=== PATIENT | female | born 1990 | race Caucasian/White ===

== ENCOUNTER 2017-02-10 13:08 | Emergency (ER) | payer MEDICARE, MEDICAID ==
[~2017-02-10] VITALS: Ht 160 cm; Wt 56.9 kg
[~2017-02-10 13:08] MED LIST: ACHD5005 PO; ACHYD1T PO; ALPR0.5T PO; AMOX500C2 PO; BCP; BUTA1TAB55 PO; CYCL10TA9 PO; DOCU100C37 PO; HYDR-1231 PO; HYDR-3730 PO; HYDR-3812 PO; HYDR1TAB PO; IBP800T PO; IBUP-1780 PO; IBUP400T22 PO; NAPR-243 PO; OMEP20TA7 PO; ONDA4TAB8 PO; OXYC-465 PO; PNV1TABL9 PO; PREN1TAB39; RANI150T15 PO; SULF1TAB38 PO; bcp PO
--- NOTE | 2017-02-10 13:54 | ED Upper Extremity ---
General Chief Complaint: Upper Extremity Stated Complaint: RT SHOULDER INJ FALL FROM PORCH Source: patient History of Present Illness Time seen by provider: 13:40 Initial Comments The patient is a 26-year-old white female who reports that just prior to admission she fell off her porch and landed heavily on her left shoulder. When Questioned as to why this happened she reported that she had been lecturing her children on what might happen if they leaned over too far and fell. She apparently demonstrated in a graphic sort of way. She complains of pain at the left clavicle and labrum areas. There is no visible defect. Onset: just prior to arrival Pain/Injury Location: left shoulder Method of Injury: fell Allergies and Home Medications Allergies Coded Allergies: tramadol (Unverified Allergy, Mild, RASH, 07/27/09) Home Medications Hydrocodone/Acetaminophen 1 Each Tablet, 1-2 EACH PO Q4H, #35 Prescribed by: ANIVAL GUDINO on 04/15/16 1002 Omeprazole 20 Mg Tablet.dr, 20 MG PO DAILY, (Reported) Ondansetron 4 Mg Tab.rapdis, 4 MG PO Q4H PRN for NAUSEA, (Reported) Ranitidine HCl 150 Mg Tablet, 150 MG PO DAILY, (Reported) [bcp] , 1 TAB PO DAILY, (Reported) Constitutional: see HPI EENTM: no symptoms reported Respiratory: no symptoms reported Cardiovascular: no symptoms reported Gastrointestinal: no symptoms reported Musculoskeletal: other (left shoulder pain) Past Hzjlggx-Jdaibl-Mghtpm Hx Patient Social History Type Used: Cigarettes Recent Foreign Travel: No Contact w/Someone Who Travel: No Immunizations Up To Date Tetanus Booster (TDap): Less than 5yrs PED Vaccines UTD: Yes Seasonal Allergies Seasonal Allergies: No Surgeries HX Surgeries: No Respiratory Hx Respiratory Disorders: No Cardiovascular Hx Cardiac Disorders: No Neurological Hx Neurological Disorders: Yes Reproductive System Hx Reproductive Disorders: No Sexually Transmitted Disease: No HIV/AIDS: No Female Reproductive Disorders: Denies Genitourinary Hx Genitourinary Disorders: No Gastrointestinal Hx Gastrointestinal Disorders: Yes Gastrointestinal Disorders: Gall Bladder Disease Musculoskeletal Hx Musculoskeletal Disorders: No Musculoskeletal Disorders: Fractures Endocrine Hx Endocrine Disorders: No HEENT HX ENT Disorders: No Loss of Vision: Denies Hearing Impairment: Denies Cancer Hx Cancer: No Psychosocial Hx Psychiatric Problems: Yes Behavioral Health Disorders: Anxiety, Depression Integumentary HX Skin/Integumentary Disorder: No Blood Transfusions Hx Blood Disorders: No Adverse Reaction to a Blood Tr: No Family Medical History Significant Family History: No Pertinent Family Hx Family Medial History: Asthma 19 FATHER, Onset:Childhood Thyroid disease 19 MOTHER, Onset:30's - 40 Physical Exam Vital Signs Vital Sign - Last 12Hours 02/10/17 13:30 Temp 97.3 Pulse 85 Resp 16 B/P (MAP) 118/68 Pulse Ox 97 O2 Delivery Room Air Capillary Refill : General Appearance: moderate distress HEENT: normal ENT inspection Neck: full range of motion Cardiovascular: normal peripheral pulses, regular rate, rhythm, no edema, no gallop, no JVD, no murmur Respiratory: chest non-tender, lungs clear, normal breath sounds, no respiratory distress, no accessory muscle use Comments Tender to palpation along the left clavicle without palpable deformity. Palpable pain at the area of the labrum without step-off Progress/Results/Core Measures Results/Orders My Orders Orders - LUCHO BYRNES MD Shoulder, Left, 3 Views (02/10/17 13:46) Clavicle, Left (02/10/17 13:46) Vital Signs/I&O Vital Sign - Last 12Hours 02/10/17 13:30 Temp 97.3 Pulse 85 Resp 16 B/P (MAP) 118/68 Pulse Ox 97 O2 Delivery Room Air Departure Communication Progress Notes X-rays show no bony abnormalities of the shoulder or clavicle. Impression Impression: Primary Impression: left shoulder contusion Disposition: 01 HOME, SELF-CARE Condition: Stable/Unchanged Departure-Patient Inst. Decision time for Depature: 14:28 Referrals: LUIS SCHWARTZ MD (PCP/Family) Primary Care Physician Patient Instructions: How to Use a Shoulder Sling Add. Discharge Instructions: All discharge instructions reviewed with patient and/or family. Voiced understanding. The patient is informed that there are no bony abnormalities. The possibility of rotator cuff injury remains. Use shoulder sling as demonstrated. Use ice pack for 30 minutes at least 3 times before bedtime. Ibuprofen 600 mg 3 times daily If you are unable to recognize any improvement by one week's time, see your provider for possible referral to orthopedics. LUCHO BYRNES MD Feb 10, 2017 13:54
--- NOTE | 2017-02-10 14:08 | Diagnostic Imaging Report ---
INDICATION: Left shoulder injury 2 views of the left clavicle show no fracture or dislocation. IMPRESSION: Negative left clavicle. Dictated by: Dictated on workstation # [id number]
--- NOTE | 2017-02-10 14:14 | Diagnostic Imaging Report ---
INDICATION: Left shoulder pain after a fall. 3 views of the left shoulder show no fracture, dislocation or other acute abnormalities. IMPRESSION: Negative left shoulder. Dictated by: Dictated on workstation # [id number]
[2017-02-10 14:50] VITALS: BP 118/68
--- OUTSIDE RECORDS SUMMARY | 2017-02-14 07:21 | XMS REPORT ---
Author JUSTYN Agustin Organization [employer] Address Unknown Phone Unavailable Care Team Providers Care Manager Studio Name Role Phone JUSTYN MEJIAS CP Unavailable Allergies No Known Allergies Problems Problem Type Condition Code Onset Dates Condition Status Problem Generalized anxiety disorder F41.1 Active Problem ADHD, predominantly inattentive type F90.0 Active Problem Depressive disorder, not elsewhere classified F32.9 Active Assessment ADHD, predominantly inattentive type F90.0 Active Assessment Depressive disorder, not elsewhere classified F32.9 Active Assessment Generalized anxiety disorder F41.1 Active Medications No Known Medications Procedures Procedure Coding System Code Date Psychotherapy, patient &/family, 45 minutes, established patient CPT-4 72684 May 27, 2016 Results No Known Results Summary Purpose [employer] Submission
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
== END 2017-02-10 14:50 | disposition home or self-care (01) ==
LOC: EDUNIT# 13:08 → ER 13:11
DX: S40.012A Contusion of left shoulder, initial encounter (principal); F41.9 Anxiety disorder, unspecified; F32.9 Major depressive disorder, single episode, unspecified; Z87.39 Personal history of other diseases of the musculoskeletal system and connective tissue; W17.89XA Other fall from one level to another, initial encounter
CPT/HCPCS: 73000; 73030; 99282

== ENCOUNTER → 2017-08-16 | Outpatient (CLI) | payer MEDICARE, MEDICAID ==
[~2017-08-16] MED LIST changes: -HYDR-3812 PO
--- NOTE | 2017-08-16 12:09 | Diagnostic Imaging Report ---
PROCEDURE: US Thyroid. TECHNIQUE: Multiple real-time grayscale images were obtained of the thyroid in various projections. INDICATION: Goiter. FINDINGS: There are no prior studies available for comparison. The thyroid gland is prominent with the right lobe measuring 5.3 x 1.9 x 1.9 cm and the left lobe estimated to be 4.8 x 1.7 x 1.7 cm (normal gland size 4-5 x 2 x 2 cm or less). There is no discrete solid or cystic mass within either lobe, but the thyroid gland itself has somewhat of a coarse echotexture. IMPRESSION: 1. The thyroid gland is at the upper limits of normal in size, but there is no discrete solid or cystic mass identified. 2. If further imaging evaluation of the thyroid gland is desired, then a nuclear medicine thyroid scan with uptake will be recommended. Dictated by: Dictated on workstation # [id number]
== END ==
LOC: RAD 11:16
PROVIDERS: ATTEND Obstetrics & Gynecology
DX: E04.9 Nontoxic goiter, unspecified (principal)
CPT/HCPCS: 76536

== ENCOUNTER 2018-01-21 11:42 | Inpatient (IN) | payer MEDICARE, MEDICAID ==
[~2018-01-21] VITALS: Ht 160 cm; Wt 64.4 kg
[2018-01-21] VITALS (31 sets, daily range): BP systolic 97–137; BP diastolic 55–93
[~2018-01-21 11:42] MED LIST changes: -RANI150T15 PO; +RANI150T46 PO
[2018-01-21] MEDS ORDERED: D5 LR IV SOLUTION 1,000 ML IV ONE (12:11)
[2018-01-21] MEDS ORDERED: D5 LR IV SOLUTION 1,000 ML IV SCH (12:39)
[2018-01-21] MEDS ORDERED: OXYTOCIN/NORMAL SALINE 500 ML IV SCH ×2 (12:39→14:39)
[2018-01-21 12:52] LABS: BASOPHILS % (AUTO) 0 % (0-10); EOSINOPHILS # (AUTO) 0.1 10^3/uL (0.0-0.3); EOSINOPHILS % (AUTO) 1 % (0-10); HEMATOCRIT 38 % (35-52); HEMOGLOBIN 12.7 G/DL (11.5-16.0); LYMPHOCYTES % (AUTO) 27 % (12-44); MEAN CORPUSCULAR HEMOGLOBIN 29 PG (25-34); MEAN CORPUSCULAR HGB CONC 34 G/DL (32-36); MEAN CORPUSCULAR VOLUME 86 FL (80-99); MEAN PLATELET VOLUME 10.6 FL (7.4-10.4); MONOCYTES % (AUTO) 9 % (0-12); NEUTROPHILS # (AUTO) 6.8 X 10^3 (1.8-7.8); NEUTROPHILS % (AUTO) 62 % (42-75); PLATELET COUNT 224 10^3/uL (130-400); RED BLOOD COUNT 4.41 10^6/uL (4.35-5.85); RED CELL DISTRIBUTION WIDTH 13.8 % (10.0-14.5); WHITE BLOOD COUNT 10.9 10^3/uL (4.3-11.0)
[2018-01-21 12:54] LABS: BILIRUBIN,URINE NEGATIVE (NEGATIVE); CLARITY,URINE CLEAR; COLOR,URINE YELLOW; GLUCOSE, URINE (UA) NEGATIVE (NEGATIVE); KETONES,URINE NEGATIVE (NEGATIVE); LEUKOCYTE ESTERASE ,URINE 1+ (NEGATIVE); NITRITE,URINE NEGATIVE (NEGATIVE); PH,URINE 7 (5-9); PROTEIN,URINE NEGATIVE (NEGATIVE); UROBILINOGEN,URINE NORMAL (NORMAL)
[2018-01-21 13:00] LABS: BACTERIA,URINE NEGATIVE /HPF; WBC,URINE RARE /HPF
[2018-01-21 13:11] LABS: AMPHETAMINE SCREEN, URINE NEGATIVE (NEGATIVE); BARBITURATE SCREEN URINE NEGATIVE (NEGATIVE); BENZODIAZEPINES SCREEN URINE NEGATIVE (NEGATIVE); CANNABINOID SCREEN, URINE NEGATIVE (NEGATIVE); COCAINE SCREEN URINE NEGATIVE (NEGATIVE); METHADONE STAT NEGATIVE (NEGATIVE); METHAMPHETAMINE SCREEN URINE S NEGATIVE (NEGATIVE); OPIATE SCREEN URINE NEGATIVE (NEGATIVE); OXYCODONE STAT NEGATIVE (NEGATIVE); PROPOXYPHENE STAT NEGATIVE (NEGATIVE); TRICYCLIC ANTIDEPRESSANTS SCRE NEGATIVE (NEGATIVE)
[2018-01-21] MEDS ORDERED: MULT-228 PO (13:22)
[2018-01-21] MEDS ORDERED: LACTATED RINGERS 1,000 ML IV ONE ×3 (13:26→13:34)
[2018-01-21] MEDS ORDERED: SUFENTA 0.6MCG/ML BUPIVA 0.125 100 ML ONE (13:26)
[2018-01-21] MEDS ORDERED: fentaNYL INJECTION 100 MCG/2 ML AMP ONE (13:39)
[2018-01-21] MEDS ORDERED: BUPIVACAINE 0.25% 30 ML (SENSORCAINE) VIAL ONE (13:39)
[2018-01-21] MEDS ORDERED: EPIDURAL (SUFENTA 0.6MCG/ML BUPIVA 0.125%) 100 ML BAG EPI PRN (13:45)
[2018-01-21] MEDS ORDERED: NALOXONE 0.4 MG/ML 1 ML (NARCAN) VIAL IV PRN (13:45)
[2018-01-21] MEDS ORDERED: ONDANSETRON 4 MG/2 ML (SDV) Z0FRAN IV PRN (13:45)
--- NOTE | 2018-01-21 14:39 | History & Physical ---
History and Physical Date Seen by Provider: Jan 21, 2018 Time Seen by Provider: 14:36 Patient is a P4 white female with a due date of February 08, 2018 putting her at 37 Weeks gestation. She presented with complaint of contractions. She was dilated 4-5 cm. She denies ruptured membranes or bleeding. She's had a problem with . She says uncomplicated vaginal deliveries. Her GBS culture was negative on January 13, 2018 Allergies tramadol which causes hives Medications are vitamins Medical social and surgical histories are per the antepartum record HEENT exam is normal except for her exceedingly poor dentition Neck is supple no lymphadenopathy no thyromegaly is gravid soft nontender nondistended Extremities shows no clubbing cyanosis. There is no Homans sign. Pelvic exam is pending per nursing and patient is 5+ and dilated with a bulging bag and a vertex presentation Laboratory Tests 01/21/18 12:20 Assessment and plan term in spontaneous labor. Patient has a history of rapid progress and short labors. Anticipation is for vaginal delivery with likely shortly Term in labor Allergies and Home Medications Allergies Coded Allergies: tramadol (Unverified Allergy, Mild, RASH, 07/27/09) Home Medications Multivitamin 1 Each Tab.chew, 3 EACH PO DAILY, (Reported) Patient Home Medication List Home Medication List Reviewed: Yes Clinical Quality Measures DVT/VTE Risk/Contraindication: Risk Factor Score Per Nursin RFS Level Per Nursing on Admit: 2=Moderate AI ANGELES MD Jan 21, 2018 2:39 pm
[2018-01-21] MEDS ORDERED: TETANUS,DIPTH,PERTUSS P/F (BOOSTRIX) 0.5 ML VIAL IM ONE (14:45)
[2018-01-21] MEDS: CATHETER FLUSH 10 ML SYR IV SCH ×2 (17:20→22:38)
--- NOTE | 2018-01-21 18:58 | OPERATIVE REPORT ---
DATE OF SERVICE: 01/21/2018 DELIVERY NOTE The patient delivered by term spontaneous vaginal delivery a viable female infant with Apgars of 8 and 9 at 1 and 5 minutes respectively, weight that is pending at this time. time of 18:27. Cord blood gas is pending. The patient delivered under epidural analgesia over an intact perineum. The infant was bulb suctioned on delivery of the head and nuchal cord was easily released and then the delivery completed. was bulb suctioned again. The umbilical cord was doubly clamped, father cut the cord. Baby was passed to mother's abdomen. The placenta delivered spontaneously Buck[place]. It had a fairly large accessory lobe, but was otherwise normal with a 3-vessel cord. It was sent to pathology for permanent section. The cervix, vagina, rectum and perineum were examined and found intact, except for a left periurethral laceration full thickness through the labia minora inner fold. This was repaired with interrupted sutures of 3-0 Vicryl Rapide. There was a superficial abrasion on the right in the same area that was not bleeding and was not repaired. The patient tolerated the delivery and the repair well and remained in the LDR for recovery. The baby remained with the mother. Job ID: [id number] DocumentID: [id number] Dictated Date: 01/21/2018 18:42:36 Veterinary Dentist Date: 01/21/2018 18:58:13 Dictated By: AI ANGELES MD
[2018-01-21] MEDS: KETOROLAC 30 MG/ML VIAL IV SCH ×2 (19:53→20:45)
[2018-01-21] MEDS: DOCUSATE SODIUM 100 MG (COLACE) CAP PO SCH (20:55)
[2018-01-21] MEDS: BENZOCAINE/MENTHOL (DERMOPLAST) 56 ML CAN TP PRN (20:55)
[2018-01-21] MEDS: oxyCODONE/APAP 5/325MG (PERCOCET 5) TABLET PO PRN (21:08)
[2018-01-22] VITALS: BP 104/64
[2018-01-22] MEDS: oxyCODONE/APAP 5/325MG (PERCOCET 5) TABLET PO PRN ×3 (01:54→20:59)
[2018-01-22] MEDS: KETOROLAC 30 MG/ML VIAL IV SCH (01:55)
[2018-01-22 03:55] VITALS: BP 106/53
--- NOTE | 2018-01-22 07:38 | Progress Note-Standard ---
Standard Progress Note Progress Notes/Assess & Plan Date Seen by Provider: Jan 22, 2018 Time Seen by Provider: 07:37 Progress/Assessment & Plan Patient is without complaint. She is ambulating, voiding, tolerating by mouth well, has good pain control. Vital Signs 01/22/18 03:55 Temp 97.6 Pulse 69 Resp 18 B/P (MAP) 106/53 (70) Pulse Ox 99 O2 Delivery Room Air Vital signs are stable. Patient is afebrile. Fundus is firm below the umbilicus and nontender. Extremities show no clubbing cyanosis. There is no Homans sign. Assessment and plan day number 1 status post term spontaneous vaginal delivery doing well. Plan is for routine convalescence. Day and likely discharge home tomorrow AI ANGELES MD Jan 22, 2018 7:37 am
[2018-01-22] MEDS ORDERED: DOCU100C37 PO (07:53)
[2018-01-22] MEDS ORDERED: OXYC-471 PO (07:53)
[2018-01-22] MEDS ORDERED: IBUP-1780 PO (07:53)
--- NOTE | 2018-01-22 07:54 | Discharge Instructions ---
Discharge Instructions Discharge Medications New, Converted or Re-Newed RX: RX on Chart Patient Instructions Patient Instructions: As directed Return to The Hospital For: As directed Activity & Diet Discharge Diet: No Restrictions Activity as Tolerated: No Orders-Post D/C & Referrals Follow Up Appt: Call to make follow up appt. for patient in 4 weeks. Activity Per routine post vaginal delivery instructions. Please call in RX to patient pharmacy. Diet as tolerated Patient may shower or tub bathe as desired. AI ANGELES MD Jan 22, 2018 7:54 am
[2018-01-22] MEDS: CATHETER FLUSH 10 ML SYR IV SCH ×3 (08:22→22:00)
[2018-01-22] MEDS: DOCUSATE SODIUM 100 MG (COLACE) CAP PO SCH ×2 (08:25→20:07)
[2018-01-22 08:26] VITALS: BP 97/58
[2018-01-22] MEDS: IBUPROFEN 800 MG (MOTRIN) TAB PO SCH ×3 (08:26→20:06)
--- NOTE | 2018-01-22 10:22 | Anesthesia-Regional Post-Op ---
Regional Patient Condition Mental Status: Alert, Oriented x3 Circulation: Same as Pre-Op Headache: Absent Sensation: Full Recovery Motor Block: Absent Post Op Complications Complications None Follow Up Care/Instructions Patient Instructions None needed. Anesthesia/Patient Condition Patient is doing well, no complaints, stable vital signs, no apparent adverse anesthesia problems. No complications reported per nursing. JOSIAH LINO CRNA Jan 22, 2018 10:22
[2018-01-22 11:15] VITALS: BP 103/58
[2018-01-22] MEDS ORDERED: IBUPROFEN 800 MG (MOTRIN) TAB PO SCH (14:45)
[2018-01-22 17:15] VITALS: BP 102/63
[2018-01-22 20:00] VITALS: BP 95/62
[2018-01-23] MEDS: IBUPROFEN 800 MG (MOTRIN) TAB PO SCH ×2 (01:28→08:31)
[2018-01-23] MEDS: oxyCODONE/APAP 5/325MG (PERCOCET 5) TABLET PO PRN ×2 (01:29→06:10)
[2018-01-23 01:30] VITALS: BP 106/58
[2018-01-23] MEDS: CATHETER FLUSH 10 ML SYR IV SCH (06:09)
--- NOTE | 2018-01-23 07:55 | Progress Note-Standard ---
Standard Progress Note Progress Notes/Assess & Plan Date Seen by Provider: Jan 23, 2018 Time Seen by Provider: 07:54 Progress/Assessment & Plan Patient is without complaint. She is ambulating, voiding, tolerating by mouth well, has good pain control. Vital Signs 01/22/18 03:55 Temp 97.6 Pulse 69 Resp 18 B/P (MAP) 106/53 (70) Pulse Ox 99 O2 Delivery Room Air Vital signs are stable. Patient is afebrile. Fundus is firm below the umbilicus and nontender. Extremities show no clubbing cyanosis. There is no Homans sign. Assessment and plan day number 1 status post term spontaneous vaginal delivery doing well. Plan is for routine convalescence. Day and likely discharge home tomorrow 01-23-18 No c/o. Ready for d/c VSS [employer] Vital Signs 01/22/18 01/23/18 20:00 01:30 Temp 98.7 Pulse 73 Resp 18 B/P (MAP) 106/58 (74) Pulse Ox 100 O2 Delivery Room Air FF below UMB No homans a/p PPD 2 Doing well. Home Final Diagnosis AI DELANEY MD Jan 23, 2018 7:55 am
[2018-01-23] MEDS: DOCUSATE SODIUM 100 MG (COLACE) CAP PO SCH (08:31)
[2018-01-23 08:50] VITALS: BP 105/75
[2018-01-23] MEDS: BENZOCAINE/MENTHOL (DERMOPLAST) 56 ML CAN TP PRN (10:50)
[2018-01-23 11:35] VITALS: BP 105/75
== END 2018-01-23 11:35 | disposition home or self-care (01) | DRG 775 ==
LOC: LDRP 11:42 → WSo 11:42 → LDRP 12:07 → WSo 12:07 → LDRP 20:56
PROVIDERS: ADMIT Obstetrics & Gynecology; ATTEND Obstetrics & Gynecology
PROC: 10E0XZZ Delivery of Products of Conception, External Approach (ICD-10-PCS; principal; 2018-01-21)
PROC: 0UQMXZZ Repair Vulva, External Approach (ICD-10-PCS; 2018-01-21)
DX: O71.82 Other specified trauma to perineum and vulva (principal); O99.334 Smoking (tobacco) complicating childbirth; F17.210 Nicotine dependence, cigarettes, uncomplicated; Z37.0 Single live birth; Z3A.37 37 weeks gestation of pregnancy
CPT/HCPCS: 36415; 80306; 81000; 85025; 86850; 86900; 86901; 99212

== ENCOUNTER 2019-08-06 14:32 | Emergency (ER) | payer MEDICARE, MEDICAID ==
[~2019-08-06] VITALS: Ht 160 cm; Wt 59.0 kg
[~2019-08-06 14:32] MED LIST changes: +MULT-228 PO; +OXYC-471 PO; +RANI-613 PO; -RANI150T46 PO
[2019-08-06] MEDS ORDERED: METH-313 PO (14:51)
--- NOTE | 2019-08-06 14:52 | ED Upper Extremity ---
General Chief Complaint: Upper Extremity Stated Complaint: L SHOULDER PAIN Nursing Triage Note: C/O L shoulder pain radiating to L side of neck. patient reports that the shoulder has been hurting for a time but not this severe. denies injury Nursing Sepsis Screen: No Definite Risk Source: patient Exam Limitations: no limitations History of Present Illness Date Seen by Provider: Aug 06, 2019 Time Seen by Provider: 14:47 Initial Comments To ER with pain at the medial border of the left shoulder blade since last night. She's had this intermittently is in in the past, it has gone away on its own. Pain is worse with turning her head [id number]. No fevers chills or inju ry. Onset: yesterday Severity: moderate Pain/Injury Location: left shoulder Method of Injury: unknown Modifying Factors: Worse With Movement Allergies and Home Medications Allergies Coded Allergies: tramadol (Unverified Allergy, Mild, RASH, 07/27/09) Home Medications Docusate Sodium 100 Mg Capsule, 100 MG PO BID Prescribed by: AI BLACKMON on 01/22/18 075 Ibuprofen 800 Mg Tablet, 800 MG PO Q6H Prescribed by: AI BLACKMON on 01/22/18 0753 Multivitamin 1 Each Tab.chew, 3 EACH PO DAILY, (Reported) Oxycodone HCl/Acetaminophen 1 Each Tablet, 1-2 TAB PO Q4H PRN for PAIN-MODERATE Prescribed by: AI BLACKMON on 01/22/18 0753 Patient Home Medication List Home Medication List Reviewed: Yes Review of Systems Constitutional: see HPI EENTM: see HPI Respiratory: no symptoms reported Cardiovascular: no symptoms reported Genitourinary: no symptoms reported Musculoskeletal: see HPI Skin: no symptoms reported Psychiatric/Neurological: No Symptoms Reported Past Kimgjjk-Ofefsr-Oeseie Hx Patient Social History Alcohol Use: Denies Use Recreational Drug Use: No Smoking Status: Current Everyday Smoker Type Used: Cigarettes 2nd Hand Smoke Exposure: Yes Recent Foreign Travel: No Contact w/Someone Who Travel: No Recent Infectious Disease Expo: No Recent Hopitalizations: No Immunizations Up To Date Tetanus Booster (TDap): Less than 5yrs PED Vaccines UTD: Yes Seasonal Allergies Seasonal Allergies: No Past Medical History Surgeries: Yes Gallbladder Respiratory: No Cardiac: No Neurological: No Reproductive Disorders: No Female Reproductive Disorders: Denies Sexually Transmitted Disease: No HIV/AIDS: No Genitourinary: Yes Kidney Infection Gastrointestinal: No Gall Bladder Disease Musculoskeletal: No Fractures Endocrine: No HEENT: No Loss of Vision: Denies Hearing Impairment: Denies Cancer: No Psychosocial: Yes Anxiety Integumentary: No Blood Disorders: No Adverse Reaction/Blood Tranf: No Family Medical History Asthma 19 FATHER, Onset:Childhood Hypertension Grandparents (Maternal Grandmother) Thyroid disease 19 MOTHER, Onset:30's - 40 No Pertinent Family Hx Physical Exam Vital Signs Vital Signs - First Documented 08/06/19 14:37 Temp 36.5 Pulse 100 Resp 18 B/P (MAP) 114/72 (86) Pulse Ox 100 Capillary Refill : Less Than 3 Seconds Height, Weight, BMI Height: 5'3.00" Weight: 142lbs. 0.0oz. [id number]; 23.00 BMI Method:Stated General Appearance: WD/WN, no apparent distress HEENT: PERRL/EOMI, normal ENT inspection Neck: non-tender, full range of motion Respiratory: no respiratory distress Gastrointestinal: normal bowel sounds, non tender Shoulder: normal inspection, soft tissue tenderness (tenderness to palpation medial border left scapula) Elbow/Forearm: normal inspection, non-tender Wrist: Yes normal inspection, Yes non-tender Hand: normal inspection, non-tender Neurologic/Psychiatric: alert, normal mood/affect, oriented x 3 Skin: normal color, warm/dry Progress/Results/Core Measures Results/Orders My Orders Orders - KELVIN WARD APRN Ketorolac Injection (Toradol Injection) (08/06/19 15:00) Orphenadrine Injection (Norflex Injectio (08/06/19 15:00) Vital Signs/I&O 08/06/19 14:37 Temp 36.5 Pulse 100 Resp 18 B/P (MAP) 114/72 (86) Pulse Ox 100 Blood Pressure Mean: 86 Departure Impression Primary Impression: Periscapular pain Disposition: 01 HOME, SELF-CARE Condition: Improved Departure-Patient Inst. Decision time for Depature: 14:50 Referrals: AI ANGELES MD (PCP) Primary Care Physician LUIS SCHWARTZ MD (Family) Primary Care Physician Patient Instructions: Cervical Muscle Strain, Muscle Spasms (DC) Add. Discharge Instructions: 1. Warm compresses to the area 2. Anti-inflammatories like ibuprofen in addition to the muscle relaxer I have prescribed. All discharge instructions reviewed with patient and/or family. Voiced understanding. Scripts Methocarbamol (Robaxin-750) 750 Mg Tablet 750 MG PO Q4H PRN for PAIN-MODERATE (5-7), #20 TAB Prov: KELVIN WARD APRN 08/06/19 Work/School Note: Work Release Form Date Seen in the Emergency Department: Aug 06, 2019 Return to Work: Aug 08, 2019 KELVIN WARD APRN Aug 06, 2019 14:52
[2019-08-06] MEDS ORDERED: KETOROLAC 60 MG/2 ML VIAL IM ONE (15:00)
[2019-08-06] MEDS ORDERED: ORPHENADRINE 60 MG/2 ML (NORFLEX) AMP IM ONE (15:00)
[2019-08-06 15:05] VITALS: BP 114/72
== END 2019-08-06 15:05 | disposition home or self-care (01) ==
LOC: EDUNIT# 14:32 → ER 14:33
DX: M25.512 Pain in left shoulder (principal); F41.9 Anxiety disorder, unspecified; F17.210 Nicotine dependence, cigarettes, uncomplicated; Z88.5 Allergy status to narcotic agent; Z82.49 Family history of ischemic heart disease and other diseases of the circulatory system

== ENCOUNTER → 2019-08-09 | Outpatient (CLI) | payer MEDICARE, MEDICAID ==
[~2019-08-09] MED LIST changes: +METH-313 PO
--- NOTE | 2019-08-09 12:45 | Diagnostic Imaging Report ---
INDICATION: Left-sided neck pain and left shoulder pain. TIME OF EXAM: 12:08 p.m. FINDINGS: Three views of the cervical spine were obtained. There is straightening of the normal cervical lordotic curvature. C1 through C6 is seen with clarity. C7 and T1 are not well visualized on the lateral view. Prevertebral tissues are within normal limits. Odontoid is intact. No fractures are seen. IMPRESSION: No acute feature identified at C1-C6. Cervicothoracic junction is not well visualized on the lateral view. Dictated by: Dictated on workstation # [id number]
--- NOTE | 2019-08-09 12:45 | Diagnostic Imaging Report ---
INDICATION: Left-sided pain extending into the left leg. TIME OF EXAM: 12:12 p.m. FINDINGS: Frontal and lateral views of the thoracic spine were obtained. Cervicothoracic junction is better visualized on this study. Alignment is normal. Vertebral body heights are maintained. There is normal thoracic kyphotic curvature. No fracture or subluxation is seen. Pedicles and paraspinous line are intact. IMPRESSION: No acute abnormality is identified. Dictated by: Dictated on workstation # [id number]
--- NOTE | 2019-08-09 12:47 | Diagnostic Imaging Report ---
INDICATION: Left shoulder pain. TIME OF EXAM: 12:19 p.m. FINDINGS: Two views of the left shoulder were obtained. Glenohumeral and acromioclavicular alignment are normal. Acromiohumeral space is normal. No fracture or dislocation is seen. IMPRESSION: No acute bony abnormality is detected. Dictated by: Dictated on workstation # [id number]
== END ==
LOC: RAD 10:57
PROVIDERS: ATTEND Pediatrics
DX: G89.29 Other chronic pain (principal); M25.512 Pain in left shoulder; M54.2 Cervicalgia; M54.6 Pain in thoracic spine
CPT/HCPCS: 72040; 72070; 73010

== ENCOUNTER 2021-02-21 02:17 | Outpatient (CLI) | payer MEDICARE, MEDICAID ==
[~2021-02-21] VITALS: Ht 160 cm; Wt 74.2 kg
[~2021-02-21 02:17] MED LIST changes: -OXYC-465 PO; -OXYC-471 PO; +OXYC-556 PO; +OXYC1TAB11 PO
[2021-02-21] MEDS ORDERED: D5 LR IV SOLUTION 1,000 ML IV ONE (02:44)
[2021-02-21] MEDS ORDERED: D5 LR IV SOLUTION 1,000 ML IV SCH (02:45)
[2021-02-21 03:03] VITALS: BP 127/71
[2021-02-21 03:20] VITALS: BP 127/71
[2021-02-21 04:59] VITALS: BP 109/58
[2021-02-21] MEDS ORDERED: OMEP20TA7 PO (05:06)
--- NOTE | 2021-02-22 08:07 | Physician Query-Final Dx ---
KYMBERLY LONG 02/22/21 0807: Clinic Account Progress/Dx Physician Query: Please give diagnosis Please include # weeks gestation Date of Service Feb 21, 2021 at 02:17 AI ANGELES MD 02/23/21 0824: Clinic Account Progress/Dx DIAGNOSIS: Diagnosis False labor at 35 weeks gestation KYMBERLY LONG Feb 22, 2021 08:07 AI ANGELES MD Feb 23, 2021 08:24
== END 2021-02-21 05:18 ==
LOC: WSo 02:17 → LDRP 02:17 → WSo 05:18
PROVIDERS: ATTEND Obstetrics & Gynecology
DX: O62.9 Abnormality of forces of labor, unspecified (principal); Z3A.00 Weeks of gestation of pregnancy not specified

== ENCOUNTER 2021-03-13 23:39 | Outpatient (CLI) | payer MEDICARE, MEDICAID ==
[~2021-03-13] VITALS: Ht 162.5 cm; Wt 72.5 kg
[2021-03-13 23:50] VITALS: BP 133/77
[2021-03-14] VITALS: BP 112/72
[2021-03-14 00:10] VITALS: BP 110/66
[2021-03-14 00:50] VITALS: BP 133/77
[2021-03-14 01:00] VITALS: BP 113/79
--- NOTE | 2021-03-15 08:08 | Physician Query-Final Dx ---
KYMBERLY LONG 03/15/21 0807: Clinic Account Progress/Dx Physician Query: Please give diagnosis Please include # weeks gestation Date of Service Mar 13, 2021 at 23:39 AI ANGELES MD 03/16/21 0542: Clinic Account Progress/Dx DIAGNOSIS: Diagnosis False labor at 38 weeks gestation KYMBERLY LONG Mar 15, 2021 08:07 AI ANGELES MD Mar 16, 2021 05:42
[2021-03-16] MEDS ORDERED: IBUP-1780 PO (05:46)
[2021-03-16] MEDS ORDERED: OXYC1TAB87 PO (05:46)
[2021-03-16] MEDS ORDERED: DOCU-143 PO (05:46)
== END 2021-03-14 02:00 | disposition home or self-care (01) ==
LOC: WSo 23:39 → LDRP 23:39 → WSo 03-14 02:00
PROVIDERS: ATTEND Obstetrics & Gynecology
DX: O47.1 False labor at or after 37 completed weeks of gestation (principal); Z3A.38 38 weeks gestation of pregnancy
CPT/HCPCS: 99214

== ENCOUNTER → 2021-12-15 | Outpatient (CLI) | payer MEDICARE, MEDICAID ==
[~2021-12-15] MED LIST changes: +CYCL10TA25 PO; -CYCL10TA9 PO; +DOCU-143 PO; +NORG1TAB14 PO; +OMEP20TA56 PO; -OMEP20TA7 PO; +OXYC1TAB87 PO
--- NOTE | 2021-12-15 13:30 | Diagnostic Imaging Report ---
PROCEDURE: MR imaging cervical spine without contrast. TECHNIQUE: Multiplanar, multisequence MR imaging of the cervical spine was performed without contrast. INDICATION: Neck and right shoulder pain. Correlated radiographs 08/09/2019. No prior cervical MRI. FINDINGS: Cervical statures are normal, the alignment is anatomic and the marrow signal intensity normal. There are no Modic endplate changes and the cervical spinal cord has a normal volume and normal morphology and normal signal intensity. There is no paravertebral mass, hemorrhage or fluid collection. The craniocervical relationship is normal. The C1-C2, C2-C3 and C3-C4 as well as C4-C5 levels and discs were normal. The spinal canal and neural foramen are widely patent at those levels. C5-C6: There is disc desiccation and mild disc stature loss. Slightly eccentric to the right is broad-based posterior disc bulge indenting the ventral thecal sac but resulting in only mild spinal canal stenosis. There is CSF preserved circumscribing the cord at this level and there was no substantial narrowing of the neural foramen. The C6-C7 and C7-T1 levels and discs were normal. The canal and foramina widely patent. IMPRESSION: Broad-based posterior bulging of disc at C5-C6 without substantial degrees of stenosis. Normal cord, normal alignment. No acute abnormality. Dictated by: Dictated on workstation # [id number]
== END ==
LOC: RAD 08:45
PROVIDERS: ATTEND Nurse Practitioner Gerontology
DX: M50.122 Cervical disc disorder at C5-C6 level with radiculopathy (principal)
CPT/HCPCS: 72141

== ENCOUNTER 2022-04-30 20:56 | Emergency (ER) | payer MEDICARE, MEDICAID ==
[~2022-04-30] VITALS: Ht 160 cm; Wt 62.0 kg
[2022-04-30] MEDS ORDERED: PENI500T PO (21:13)
[2022-04-30] MEDS ORDERED: KETO10TA PO (21:13)
--- NOTE | 2022-04-30 21:13 | ED EENT ---
History of Present Illness General Chief Complaint: Dental Problems/Pain Stated Complaint: DENTAL PAIN Nursing Triage Note: Patient presented to the ER [facility] with complaints of dental pain. She advised the pain is in her right lower jaw extending into her face and ear Source: patient Exam Limitations: no limitations History of Present Illness Date Seen by Provider: Apr 30, 2022 Time Seen by Provider: 21:05 Initial Comments Patient is a 31 yo F who presents to the ED with dental pain that began acutely earlier today. Patient states the pain is in her rearmost lower right tooth. She endorses poor dentition generally. She does not routinely see a dental provider. Denies any difficulty swallowing, inability to open mouth fully, muffled voice. States she has some mild swelling of her right jaw. No foul tasting drainage. Timing/Duration: abrupt, this morning Severity: moderate Prearrival Treatment: over the counter meds Associated Symptoms: facial pain/swelling Allergies and Home Medications Allergies Coded Allergies: tramadol (Unverified Allergy, Mild, RASH, pt has rec Lortab in the past, 03/16/21) Patient Home Medication List Home Medication List Reviewed: Yes Docusate Sodium (Colace) 100 Mg Capsule, 100 MG PO BID Prescribed by: AI BLACKMON on 03/16/21 0546 Ibuprofen (Ibuprofen) 800 Mg Tablet, 800 MG PO Q6H PRN for PAIN Prescribed by: AI BLACKMON on 03/16/21 0546 Ketorolac Tromethamine (Ketorolac Tromethamine) 10 Mg Tablet, 10 MG PO Q6H PRN for PAIN-MILD (1-4) Prescribed by: Dyllan Mooney on 04/30/22 2113 Multivitamin (Flintstones) 1 Each Tab.chew, 3 EACH PO DAILY, (Reported) Entered as Reported by: PAOLA SELLERS on 01/21/18 1322 Norgestimate-Ethinyl Estradiol (Sprintec 28 Day Tablet) 1 Each Tablet, 1 EACH PO DAILY Prescribed by: AI BLACKMON on 03/18/21 0848 Omeprazole (Omeprazole) 20 Mg Tablet.dr, 20 MG PO DAILY, (Reported) Entered as Reported by: BENI THOMSON on 02/21/21 0506 Oxycodone HCl/Acetaminophen (Percocet 5-325 mg Tablet) 1 Each Tablet, 1 TAB PO Q4H Prescribed by: AI BLACKMON on 03/16/21 0546 Penicillin V Potassium (Penicillin V Potassium) 500 Mg Tablet, 500 MG PO BID Prescribed by: Dyllan Mooney on 04/30/222112 Review of Systems Review of Systems Constitutional: no symptoms reported Eyes: No Symptoms Reported Ears: No Symptoms Reported Nose: no symptoms reported Mouth: pain, swelling Throat: no symptoms reported Respiratory: no symptoms reported Cardiovascular: no symptoms reported Gastrointestinal: no symptoms reported Past Bhztwoa-Byoaqy-Qwqaxm Hx Immunizations Up To Date Tetanus Booster (TDap): Less than 5yrs PED Vaccines UTD: Yes Seasonal Allergies Seasonal Allergies: No Past Medical History Surgeries: Yes Gallbladder Respiratory: No Cardiac: No Neurological: No Reproductive Disorders: No Female Reproductive Disorders: Denies Sexually Transmitted Disease: No HIV/AIDS: No Genitourinary: Yes Kidney Infection Gastrointestinal: No Gall Bladder Disease Musculoskeletal: No Fractures Endocrine: No HEENT: No Loss of Vision: Denies Hearing Impairment: Denies Cancer: No Psychosocial: Yes Anxiety Integumentary: No Blood Disorders: No Adverse Reaction/Blood Tranf: No Family Medical History Asthma 19 FATHER, Onset:Childhood Hypertension Grandparents (Maternal Grandmother) Thyroid disease 19 MOTHER, Onset:30's - 40 No Pertinent Family Hx Physical Exam Vital Signs Vital Signs - First Documented 04/30/22 21:02 Temp 36.6 Pulse 86 Resp 18 B/P (MAP) 137/85 (102) Pulse Ox 96 O2 Delivery Room Air Height, Weight, BMI Height: 5'3.00" Weight: 142lbs. 0.0oz. 64.468133pv; 24.00 BMI Method:Stated General Appearance: WD/WN, no apparent distress, mild distress, moderate distress, severe distress, cachetic Nose: normal inspection Mouth/Throat: dental tenderness Neck: non-tender, full range of motion, supple, normal inspection Cardiovascular: normal peripheral pulses, regular rate, rhythm, no edema, no gallop, no JVD, no murmur Respiratory: chest non-tender, lungs clear, normal breath sounds, no respiratory distress, no accessory muscle use Gastrointestinal: normal bowel sounds, non tender, soft, no organomegaly, no pulsatile mass, tenderness, spleenomegaly 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, no motor/sensory deficits, alert, normal mood/affect, oriented x 3 Skin: normal color, warm/dry poor dentition; broken tooth with significant decay noted in the area of pain; minimal right mandibular swelling noted Progress/Results/Core Measures Results/Orders My Orders Orders - DYLLAN MOONEY APRN Ketorolac Injection (Toradol Injection) (04/30/22 21:15) Vital Signs/I&O 04/30/22 04/30/22 21:02 21:20 Temp 36.6 Pulse 86 86 Resp 18 18 B/P (MAP) 137/85 (102) 137/85 Pulse Ox 96 96 O2 Delivery Room Air Room Air Blood Pressure Mean: 102 Progress Progress Note : Progress Note Patient is nontoxic and well hydrated on exam. Vital signs are reassuring. No evidence of deep space infection of the neck on exam. Offered patient IM ketorolac and she declined stating she did not want a shot. Will d/c home with recs for supportive care and follow-up with PCP for persistent symptoms. Will give rx for Pen VK. Follow-up with a dental provider for definitive care. Return precautions for urgent symptomology discussed. Patient verbalized understanding. Departure Impression Primary Impression: Dental caries Additional Impression: Tooth pain Disposition: HOME, SELF-CARE Condition: Stable Departure-Patient Inst. Decision time for Depature: 21:10 Referrals: RAHEEM GREENWOOD MD (PCP/Family) Primary Care Physician Patient Instructions: Dental Pain (DC) Scripts Penicillin V Potassium (Penicillin V Potassium) 500 Mg Tablet 500 MG PO BID for 7 Days, #14 TAB Prov: DYLLAN MOONEY APRN 04/30/22 Ketorolac Tromethamine (Ketorolac Tromethamine) 10 Mg Tablet 10 MG PO Q6H PRN for PAIN-MILD (1-4) for 5 Days, #15 TAB Prov: DYLLAN MOONEY APRN 04/30/22 DYLLAN MOONEY APRN Apr 30, 2022 21:13
[2022-04-30] MEDS ORDERED: KETOROLAC 60 MG/2 ML VIAL IM ONE (21:15)
[2022-04-30 21:20] VITALS: BP 137/85
== END 2022-04-30 21:20 | disposition home or self-care (01) ==
LOC: EDUNIT# 20:56 → ER 20:59
DX: K02.9 Dental caries, unspecified (principal); Z28.310 Unvaccinated for COVID-19
CPT/HCPCS: 99282